=== PATIENT | female | born 1960 ===

== ENCOUNTER 2016-12-16 15:36 | Outpatient (CLI) | payer MEDICARE ==
--- NOTE | 2016-12-16 16:31 | XRay Report ---
Sinus series: History: Acute bacterial rhinosinusitis Findings: The frontal maxillary ethmoid and sphenoid sinuses are well pneumatized. One appears intact. No mucosal thickening or fluid is seen. Impression: Essentially negative sinuses.
== END 2016-12-16 15:37 | disposition home or self-care (01) ==
LOC: SPVIMAG 15:36
PROVIDERS: ATTEND Internal Medicine
DX: J01.90 Acute sinusitis, unspecified (principal)
CPT/HCPCS: 70220